=== PATIENT | male | born 1965 | race Caucasian/White ===

== ENCOUNTER 2017-03-30 06:35 | Observation (INO) | payer OTHER ==
[~2017-03-30] VITALS: Ht 177.8 cm; Wt 60.3 kg
--- NOTE | ~2017-03-30 | P ---
[facility] [place] [address] PROCEDURE REPORT Name: KEHINDE GARCIA Room #: 211-P [facility] M..#: [id number] Admission: 03/30/17 Attend Phys: Ned Corona MD Discharge: Date of : 67 Report #: [id number] THIS REPORT FOR: //name// CC: [facility] physician/PCP Ned Rice PROCEDURE: Bi-V pacemaker insertion PREOPERATIVE DIAGNOSES: 1. Permanent atrial fibrillation. 2. Nonischemic cardiomyopathy. HISTORY: The patient is a 52-year old with history of atrial fibrillation, who has failed multiple attempts at cardioversion as well as a nonischemic cardiomyopathy, who does not tolerate rate control medications due to increasing fatigue. He is here for a Bi-V pacemaker insertion with plans to perform an AV node ablation at a later date. ANESTHESIA: The patient underwent MAC anesthesia with no anesthesia related complications. DESCRIPTION OF PROCEDURE: The patient underwent informed consent. We discussed the details of the procedure including the risks, which include but not limited to bleeding, infection, vascular damage, cardiac perforation and pneumothorax. He understood these risks and was willing to proceed. As such, he is brought to the EP laboratory in a fasting and sedated state and prepped and draped in the sterile fashion. He received IV Ancef for antibiotic prophylaxis and underwent a venogram showing patency of the left axillary vein. Next, I injected 20 mL of lidocaine below the level of left clavicle. Incision was made. A pocket was created over the prepectoral fascia and access was obtained twice to left axillary vein using the extrathoracic approach. Sheaths were positioned using the modified Seldinger technique. Next, a lead was positioned in the right ventricular apex with adequate pacing and sensing thresholds. Next, a 9-Cambodian short sheath was placed into the left axillary vein and then, a coronary sinus guide sheath was placed into the right atrium. Using a Wholey wire, I obtained access to the coronary sinus with ease. A coronary sinus venogram was performed, which showed that there was a middle cardiac vein and posterolateral branch and an anterolateral branch. I decided to obtain access to the mid posterolateral branch. Of note, this access to this vein was somewhat challenging. Use a couple different guidewires to try and obtain access but once the guidewire was in place, I could not advance the lead. Eventually, I was able to advance the lead directly into the vessel and then placed a Glidewire deep into the branch. In fact, it appeared that the wire was entering the middle cardiac vein. I was able to advance the wire deep into the vessel and there was adequate pacing and sensing thresholds throughout. On the [facility] [address] [place] [address] PROCEDURE REPORT Name: RADHAKEHINDE Bourgeois Room #: 211-P [facility] Eugene M.R.#: [id number] Admission: 03/30/17 Attend Phys: Ned Corona MD Discharge: Date of : 67 Report #: [id number] distal poles, there was evidence of phrenic nerve capture but this was not noted on the mid poles. As such, the sheath was split. The lead was sutured to the prepectoral fascia using Ethibond suture and then, the device was connected. The atrial was plugged. The pocket was irrigated with vancomycin and then, the pocket was closed in 3 layers and surgical glue was placed to the outer skin layer. The patient awoke neurologically and hemodynamically intact with no complications and no significant bleeding. The implanted pacemaker was a [employer] model #IT9632, serial #[id number]. The RV lead was a [employer] model #5088TC, 58 cm, serial #[id number]. The LV lead was a [employer] model #1458Q. This is a 92 cm lead due to his obesity and large heart. The RV lead demonstrated a R-wave greater than 12 volts, pacing impedance of 800 ohms and pacing threshold of 0.75 volts at 0.4 milliseconds. The LV lead demonstrated a pacing impedance of 890 ohms and pacing threshold of 1 volt at 0.4 milliseconds. Reprogrammed the device to the vector 6 pacing configuration, which is pacing from M3 to M2 as this allowed for the best pacing threshold as well as a basal pacing configuration. The device was programmed to the VVI 50 mode. CONCLUSIONS: 1. Successful biventricular pacemaker insertion. 2. Satisfactory right ventricular and left ventricular pacing and sensing thresholds. By: [id number] Ned Corona MD /nt
--- NOTE | ~2017-03-30 | D ---
[facility] [place] [address] DISCHARGE SUMMARY Name: KEHINDE GARCIA Room #: [facility]..#: [id number] Admission: 03/30/17 Attend Phys: Ned Corona MD Discharge: Date of : 67 Report #: [id number] THIS REPORT FOR: //name// CC: MELIS[facility] physician/PCP Ned Rice DATE OF SERVICE: 03/31/2017 DISCHARGE DIAGNOSES: 1. Nonischemic cardiomyopathy. 2. Permanent atrial fibrillation. 3. Morbid obesity. 4. Tobacco abuse. 5. Chronic obstructive pulmonary disease. PROCEDURES PERFORMED: Bi-V pacemaker implantation. HISTORY OF PRESENT ILLNESS: The patient is a 52-year-old male with history of permanent atrial fibrillation and nonischemic cardiomyopathy who is scheduled for Bi-V pacemaker implantation with an AV node ablation at a later date. The patient underwent successful implantation of Bi-V pacemaker without any complications. HOSPITAL COURSE: The patient was monitored overnight. He received IV antibiotics. On telemetry, he remained in AFib with controlled rates. The following day, chest x-ray showed stable lead position with no pneumothorax. A device interrogation showed normal device function. The patient denied any problems with chest pain or shortness of breath. PHYSICAL EXAMINATION: VITAL SIGNS: Stable. HEART: Irregularly irregular with no murmurs, rubs, gallops. LUNGS: Clear to auscultation. ABDOMEN: Soft, nontender. EXTREMITIES: There is no clubbing, cyanosis, edema. DISCHARGE DISPOSITION: As such, he was deemed stable for discharge home. DISCHARGE INSTRUCTIONS: Reviewed. [facility] [address] [place] [address] DISCHARGE SUMMARY Name: KEHINDE GARCIA Room #: 211-P [facility] Eugene Michel#: [id number] Admission: 03/30/17 Attend Phys: Ned Corona MD Discharge: Date of : 67 Report #: [id number] FOLLOWUP: He has a followup in 7-10 days for a site check. He is instructed not to resume his anticoagulation until seen in clinic. By: [id number] Ned Corona MD /nt
[~2017-03-30 06:35] MED LIST: ALBUTEROL SULFAT4 MG PO; ALBUTEROL SULFATE PO; ALDACTONE25 MG PO; ASPIR 8181 MG PO; CARDIZEM CD240 MG PO; CARVEDILOL12.5 MG PO; COREG6.25 MG PO; COZAAR 25 MG TA25 M2 PO; DIGOXIN250 MCG; DIGOXIN250 MCG PO; GLYBURIDE 2.52.5 MG PO; KLOR-CON 1010 MEQ PO; LASIX 20 MG TAB20 MG PO; LASIX 40 MG TAB40 M2 PO; LIPITOR10 MG PO; LISINOPRIL5 MG PO; PACERONE 200 M200 M1 PO; PREDNISONE 10 M10 MG PO; TOPROL XL100 MG; VENTOLIN HFA 1818 GM INH; VENTOLIN HFA INH8 GM INH; XARELTO20 MG PO
[2017-03-30 07:15] LABS: ABSOLUTE NEUTROPHILS 7.3 thou/uL (1.4-8.2); EOSINOPHILS 7.5 % (0.0-3.0); HEMATOCRIT 49.6 % (42.0-52.0); HEMOGLOBIN 16.8 gm/dL (14.0-18.0); LYMPHOCYTES 19.5 % (24.0-44.0); MCH 33.8 pg (26.0-34.0); MCHC 33.9 g/dL (28.0-37.0); MCV 99.8 fL (80.0-100.0); MONOCYTES 10.1 % (1.0-8.0); PLATELET COUNT 305 thou/uL (150-400); POLYS 61.9 % (36.0-66.0); RBC 4.97 mil/uL (4.50-6.00); RDW 14.7 % (10.5-14.5); WBC 11.9 thou/uL (4.0-11.0)
[2017-03-30 07:19] LABS: MANUAL DIFF NO
[2017-03-30 07:22] LABS: CALCIUM 9.6 mg/dL (8.5-10.1); CREATININE 1.2 mg/dL (0.7-1.3); POTASSIUM 4.2 mmol/L (3.5-5.1)
[2017-03-30 07:28] LABS: ALBUMIN 3.8 g/dL (3.4-5.0); TOTAL BILIRUBIN 0.4 mg/dL (<0.1-1.0); TOTAL PROTEIN 7.9 g/dL (6.4-8.2)
[2017-03-30 07:32] LABS: APTT 25.9 Seconds (24.5-32.8); INR 1.1; PROTIME 10.8 Seconds (9.3-11.4)
[2017-03-30 07:58] VITALS: BP 104/73
[2017-03-30 12:10] VITALS: BP 109/80
[2017-03-30 15:05] VITALS: BP 110/66
[2017-03-30 19:27] VITALS: BP 114/53
[2017-03-30 23:18] VITALS: BP 135/71
[2017-03-31 03:28] VITALS: BP 122/86
[2017-03-31 07:54] VITALS: BP 158/92
[2017-03-31 08:55] VITALS: BP 158/92
[2017-03-31 10:40] VITALS: BP 124/89
== END 2017-03-31 13:00 | disposition home or self-care (01) ==
LOC: CATH → 2N 12:01
PROVIDERS: Internal Medicine Cardiovascular Disease
DX: I48.2 Chronic atrial fibrillation (principal); I42.9 Cardiomyopathy, unspecified; I25.10 Atherosclerotic heart disease of native coronary artery without angina pectoris; F17.210 Nicotine dependence, cigarettes, uncomplicated; K21.9 Gastro-esophageal reflux disease without esophagitis; I11.0 Hypertensive heart disease with heart failure; I50.40 Unspecified combined systolic (congestive) and diastolic (congestive) heart failure; E78.5 Hyperlipidemia, unspecified; G62.9 Polyneuropathy, unspecified; Z98.890 Other specified postprocedural states; Z79.82 Long term (current) use of aspirin; Z79.899 Other long term (current) drug therapy
CPT/HCPCS: 62110; 62900; 70005

== ENCOUNTER 2017-07-15 06:59 | Observation (INO) | payer OTHER ==
[~2017-07-15] VITALS: Ht 177.8 cm; Wt 131.5 kg
[2017-07-15] VITALS (12 sets, daily range): BP systolic 110–127; BP diastolic 73–93
--- NOTE | ~2017-07-15 | P ---
[facility] [place] [address] PROCEDURE REPORT Name: KEHINDE GARCIA Room #: 210-P [facility] Eugene MPeggy#: [id number] Admission: 07/15/17 Attend Phys: Ned Corona MD Discharge: 07/16/17 Date of : 67 Report #: [id number] THIS REPORT FOR: //name// CC: [facility] physician/PCP Ned Rice DATE OF SERVICE: 07/15/2017 PROCEDURE PERFORMED: AV node ablation. PREOPERATIVE DIAGNOSIS: Permanent atrial fibrillation. HISTORY OF PRESENT ILLNESS: The patient is a 52-year-old with history of permanent AFib, who is intolerant of AV lina blocking agents. He is status post Bi-V pacemaker implantation. He has healed nicely from this procedure. He is here today for AV node ablation. ANESTHESIA: The patient underwent MAC anesthesia with no anesthesia related complications. PROCEDURE: The patient underwent informed consent where we discussed the details of the procedure including the risks, which include, but not limited to bleeding, vascular damage, stroke, and [place]. He understood these risks and was willing to proceed. As such, the patient was brought to the EP laboratory in a fasting and sedated state and prepped and draped in a sterile fashion. His pacemaker was reprogrammed. Next, I obtained access of the right femoral vein times 1 placing an 8-Syriac short sheath and then exchanging this for a SR0 sheath. I placed an 8-mm ablation catheter into the right atrium. I spent over an hour trying to ablate the AV node. I could never find a His bundle. I then obtained a second access to the right femoral vein and placed a His catheter into the atrium and right ventricle to see if I could find a His bundle, but with his quadripolar catheter, I still could not find any His potentials. I continued to perform an empiric anatomical ablation and started low where the CS os was and continued ablating higher, but never developed heart block. As such, I decided to perform a retroaortic ablation from the left ventricle. I obtained access to the right femoral artery times 1 and placed an 8-Syriac short sheath. I then used a [employer] irrigated tip ablation catheter for ablation. The patient was systemically heparinized and I took the ablation catheter retrograde across the aortic valve into the left ventricle. I easily found His potential at this location. An ablation at the His resulted in heart block in approximately 7 seconds. We monitored for a period of 30 minutes and there was no return of conduction. The pacemaker was reinterrogated and found to be functioning normally and the device was programmed to the VVIR 90 beats per minute. The patient received systemic protamine and once the ACT was within acceptable range, all catheters and sheaths were pulled and hemostasis was [facility] [address] [place] [address] PROCEDURE REPORT Name: KEHINDE GARCIA Room #: 210-P [facility] MSondraRSondra#: [id number] Admission: 07/15/17 Attend Phys: Ned Corona MD Discharge: 07/16/17 Date of : 67 Report #: [id number] obtained. The patient awoke neurologically and hemodynamically intact with no complications. No significant bleeding. Given the prolonged procedure and retrograde access, I decided to keep the patient for monitoring overnight. CONCLUSIONS: Successful AV node ablation, requiring retroaortic approach and ablation from within the left ventricle. <ELECTRONICALLY SIGNED> By: Ned Corona MD 07/31/17 1617 1101 1329 Ned Corona MD /nt
--- NOTE | ~2017-07-15 | D ---
[facility] [place] [address] DISCHARGE SUMMARY Name: KEHINDE GARCIA Room #: 210-P [facility] Eugene M.RSondra#: [id number] Admission: 07/15/17 Attend Phys: Ned Corona MD Discharge: 07/16/17 Date of : 67 Report #: [id number] THIS REPORT FOR: //name// CC: MELIS[facility] physician/PCP Ned Young Krystal DISCHARGE DIAGNOSES: 1. Atrial fibrillation. 2. Nonischemic cardiomyopathy. PROCEDURES PERFORMED: AV node ablation. HISTORY OF PRESENT ILLNESS: The patient is a 52-year-old with a history of permanent atrial fibrillation, nonischemic cardiomyopathy with difficult to control rates, who is status post Bi-V pacemaker implantation. He is here for AV node ablation. Attempts at ablating the AV node were challenging from the right side. I could not really find a His signal and he had a very large right atrium and right ventricle. As such, I decided to go retrograde and I found the His bundle in the left ventricle at the septum. Ablation at this site resulted in complete heart block in less than 10 seconds. HOSPITAL COURSE: The patient was monitored overnight, did well, had no complications on telemetry, remained in AFib with a paced rhythm. Device was interrogated by the [employer] livestock and showed that there was persistence of heart block. On the day of discharge, the patient was doing well. He denies any chest pain, shortness of breath, PND, orthopnea. He had no fevers or chills. PHYSICAL EXAMINATION: HEART: Regular rate and rhythm with no murmurs. He had no elevated jugular venous pressures. LUNGS: Clear to auscultation bilaterally. ABDOMEN: Soft, nontender. EXTREMITIES: There is no edema. His right groin had healed nicely with no hematoma. As such, he was deemed stable for discharge home. He will continue with beta pardip, losartan, Xarelto. We will discontinue his amiodarone and digoxin. He will follow up with me in 3 months. <ELECTRONICALLY SIGNED> By: Ned Corona MD 07/27/17 1311 [id number] Ned Corona MD /nt
[~2017-07-15 06:59] MED LIST changes: +HYDROCODON-ACE1 EAC7 PO; -TOPROL XL100 MG; +TOPROL XL100 MG PO
[2017-07-15 07:35] LABS: HEMATOCRIT 48.7 % (42.0-52.0); HEMOGLOBIN 16.6 gm/dL (14.0-18.0); MCHC 34.2 g/dL (28.0-37.0); MCV 96.6 fL (80.0-100.0); PLATELET COUNT 227 thou/uL (150-400); RBC 5.04 mil/uL (4.50-6.00); RDW 15.1 % (10.5-14.5); WBC 8.6 thou/uL (4.0-11.0)
[2017-07-15 07:42] LABS: CREATININE 1.2 mg/dL (0.7-1.3)
[2017-07-15 07:46] LABS: APTT 25.8 Seconds (24.5-32.8); PROTIME 10.7 Seconds (9.3-11.4)
[2017-07-15 08:48] LABS: ATYPICAL LYMPHS 1 %; METAMYELOCYTES 1 %
[2017-07-15 08:49] LABS: ANISOCYTOSIS 1+
[2017-07-16] VITALS (8 sets, daily range): BP systolic 98–123; BP diastolic 62–77
[2017-10-22] MEDS ORDERED: COZAAR 50 MG TA50 M2 PO (12:22)
[2017-10-22] MEDS ORDERED: SPIRONOLACTONE25 M1 PO (12:23)
[2017-10-22] MEDS ORDERED: METOLAZONE 5 MG5 MG PO (12:24)
[2017-10-22] MEDS ORDERED: XARELTO20 MG PO (12:26)
[2017-10-22] MEDS ORDERED: VOSPIRE INH (14:33)
[2017-12-08] MEDS ORDERED: VENTOLIN HFA 1818 GM PO (11:49)
[2018-02-04] MEDS ORDERED: NORCO 10-325 T1 EACH PO (04:31)
[2018-02-09] MEDS ORDERED: NORCO 10-325 T1 EACH PO (10:47)
[2018-02-09] MEDS ORDERED: GLUCOPHAGE500 MG PO (11:07)
== END 2017-07-16 13:20 | disposition home or self-care (01) ==
LOC: CATH → 2N 11:23 → ENTRNSPT 07-16 12:49 → EDTRNSPTSTS 07-16 12:51 → 2N 07-16 13:20
PROVIDERS: Internal Medicine Cardiovascular Disease
DX: I48.2 Chronic atrial fibrillation (principal); I11.0 Hypertensive heart disease with heart failure; I50.40 Unspecified combined systolic (congestive) and diastolic (congestive) heart failure; E78.5 Hyperlipidemia, unspecified; E66.9 Obesity, unspecified; F17.210 Nicotine dependence, cigarettes, uncomplicated; Z98.890 Other specified postprocedural states
CPT/HCPCS: 62110; 62900; 70005

== ENCOUNTER → 2017-10-20 | Outpatient (CLI) | payer OTHER ==
[~2017-10-20] MED LIST changes: +COZAAR 50 MG TA50 M2 PO; +METOLAZONE 5 MG5 MG PO; +VOSPIRE PO
== END ==
LOC: RAD 06:12
DX: K21.9 Gastro-esophageal reflux disease without esophagitis (principal)

== ENCOUNTER 2017-12-10 05:36 | Inpatient (IN) | payer OTHER ==
[2017-12-10] VITALS (13 sets, daily range): BP systolic 130–163; BP diastolic 62–89
[~2017-12-10] VITALS: Ht 177.8 cm; Wt 136.1 kg
--- NOTE | ~2017-12-10 | O ---
[facility] [place] [address] OPERATIVE REPORT Name: KEHINDE GARCIA Room #: 458-P [facility] IN M.R.#: [id number] Admission: 12/10/17 Attend Phys: Jethro Ramos MD, Discharge: Date of : 67 Report #: [id number] THIS REPORT FOR: //name// CC: MEL[facility] physician/PCP Jethro Ramos DATE OF SERVICE: 12/10/2017 PREOPERATIVE DIAGNOSES: 1. Incarcerated umbilical hernia. 2. Morbid obesity. 3. Gastroesophageal reflux disease. 4. Coronary artery disease. 5. Hypertension. 6. Obstructive sleep apnea, on continuous positive airway pressure. 7. Chronic obstructive pulmonary disease. POSTOPERATIVE DIAGNOSES: 1. Incarcerated umbilical hernia. 2. Morbid obesity. 3. Gastroesophageal reflux disease. 4. Coronary artery disease. 5. Hypertension. 6. Obstructive sleep apnea, on continuous positive airway pressure. 7. Chronic obstructive pulmonary disease. PROCEDURE: Robot-assisted laparoscopic repair of an incarcerated umbilical hernia with mesh. SURGEON: Jethro Ramos MD SINGLE POINTED OPERATOR: EFRAÍN Paulino. ANESTHESIA: General endotracheal anesthesia. ESTIMATED BLOOD LOSS: Minimal (less than 5 mL). COMPLICATIONS: None appreciated. SPECIMENS: None. INDICATIONS: The patient is a 52-year-old morbidly obese male with the above-mentioned medical issues who has obvious evidence of an incarcerated umbilical hernia suspected to contain omentum. The patient has no evidence of a bowel obstruction whatsoever. The patient's defect was approximately 3 x 3 cm in dimension and as such, indication was for the above-mentioned procedures [facility] [address] [place] [address] OPERATIVE REPORT Name: KEHINDE GARCIA Room #: 458-P [facility] [place] .R.#: [id number] Admission: 12/10/17 Attend Phys: Jethro Ramos MD, Discharge: Date of : 67 Report #: [id number] today. DESCRIPTION OF PROCEDURE: After explaining the risks, benefits and alternatives of the procedure with the patient in detail in the preoperative holding area and obtaining written consent, the patient was brought to the operating room and placed supine on the operating room table. After conducting a thorough timeout procedure verifying correct patient and procedure, the patient was given general endotracheal anesthesia. Once adequate anesthesia was obtained, his SCDs were hooked up to pneumatic compression device. He was given a preoperative dose of antibiotics in line with the SCIP protocol. The patient's abdomen was prepped and draped in the standard surgical sterile fashion. A 5 mL of 0.5% Marcaine with epinephrine was used to anesthetize the skin in the left upper quadrant, midclavicular line and in a subcostal location. A #15 bladed scalpel was used to create a small skin mejia at this location. A 5 mm Visiport was placed over 0 degree 5 mm laparoscope and was introduced through this incision site. Once intra-abdominal placement was verified visually, the obturator for the trocar and laparoscope were both removed and the abdomen was insufflated to 15 mmHg using carbon dioxide gas. The laparoscope was changed to a 5-mm 30-degree laparoscope, which was reintroduced through this trocar. The entire abdomen was evaluated to ensure no injury upon entry. I then placed 2 additional trocars in the left flank. A 12 mm port was placed lateral to the umbilicus at the anterior axillary line and then an 8 mm robotic port was placed in the left lower quadrant. Both additional trocars were placed under direct vision after anesthetizing the skin at each location with 5 mL of 0.5% Marcaine with epinephrine and I had created appropriately sized skin nicks using #15 bladed scalpel. The laparoscope was removed, changed to a left lower quadrant trocar and the initially placed trocar was upsized to an 8 mm robotic trocar under direct vision. The laparoscope was removed. The da Priscilla robot was docked in standard fashion and a 30-degree up viewing laparoscope was entered into the abdomen through the 12 mm port. A ProGrasp device and scissors with electrocautery were then entered into the abdomen under direct vision with robotic assistance. I now used the scissors with electrocautery to score the peritoneum lateral to the rectus abdominis muscle. This allowed me to enter into the preperitoneal space and I proceeded to dissect in this preperitoneal space from the patient's left flank all the way across the midline to the right flank. The hernia sac was reduced in full. No holes were made in the peritoneum or hernia sac, which remained contiguous. As I dissected into the right lateral abdominal wall, we had complete hemostasis throughout. I carried the dissection at a span of approximately 15 cm in craniocaudal dimension at this juncture. Evaluation of the defect showed a 3 x 3 cm defect. I now utilized 0 Stratafix absorbable suture, which was entered in the abdomen under direct vision and proceeded to close the hernia defect in standard running fashion. I then selected a piece of ProGrip mesh measuring 10 x 15 cm in dimension. The corners were rounded off and the mesh was rolled up and placed in the abdomen, more it was maneuvered into the preperitoneal space. This was then maneuvered into position where it was unrolled giving us excellent overlap [address] [address] OPERATIVE REPORT Name: KEHINDE GARCIA Room #: 458-P [facility] .R.#: [id number] Admission: 12/10/17 Attend Phys: Jethro Ramos MD, Discharge: Date of : 67 Report #: [id number] of 5 cm in all directions outside of the hernia defect, now that the defect itself had been closed down the midline. The mesh was anchored into position at 5 points at the 12, 3, 6, and 9 o'clock positions as well as one in the middle of the mesh to hold the entire mesh in close approximation with the posterior aspect of the anterior abdominal wall. Photodocumentation of the repair was taken and provided to the patient and the permanent medical record. I then proceeded to reperitonealize the abdominal wall using 2-0 Stratafix in standard running fashion. This kept the mesh completely excluded from the intra-abdominal domain. There were no holes in the peritoneum whatsoever. All needles were removed under direct vision and passed off the field. One final evaluation of the intra-abdominal domain showed no further evidence of pathology. The robot was undocked and a 5 mm 30-degree laparoscope was placed back in the left upper quadrant trocar. The 12 mm fascial incision was closed under direct vision using 0 PDS suture on the Asif-Marina suture passer device. This was tied down under direct vision. The abdomen was fully desufflated. All remaining trocars were removed under direct vision. A 4-0 Monocryl was used in a standard subcuticular fashion for all skin incisions and Dermabond glue was applied to all skin wounds. A tonsil ball was placed in the umbilicus covered with a Tegaderm to hopefully prevent seroma formation. An abdominal binder was then applied as well. At the end of the procedure, all instrument, needle and sponge counts were correct. The patient tolerated the procedure without incident, was awakened in the operating room and transitioned to the recovery room in stable condition with no apparent complications. <ELECTRONICALLY SIGNED> By: Jethro Ramos MD, FACS 12/11/17 0738 1616 1714 Jethro Ramos MD, FACS /nt
[~2017-12-10 05:36] MED LIST changes: +VENTOLIN HFA 1818 GM PO; +VOSPIRE INH; -VOSPIRE PO
[2017-12-10 07:17] LABS: CALCIUM 9.3 mg/dL (8.5-10.1); CREATININE 1.2 mg/dL (0.7-1.3); POTASSIUM 4.6 mmol/L (3.5-5.1)
[2017-12-10] MEDS ORDERED: HYDROCODONE-AP1 EAC6 PO (10:33)
[2017-12-10] MEDS ORDERED: NEURONTIN 300300 M1 PO (10:33)
[2017-12-10] MEDS ORDERED: SENOKOT-S TABL1 EACH PO (10:33)
[2017-12-11 03:50] VITALS: BP 143/63
[2017-12-11 06:34] LABS: MCH 32.6 pg (26.0-34.0); MCHC 33.3 g/dL (28.0-37.0); MCV 97.9 fL (80.0-100.0); RBC 4.91 mil/uL (4.50-6.00); RDW 15.2 % (10.5-14.5); WBC 20.5 thou/uL (4.0-11.0)
[2017-12-11 06:46] LABS: CALCIUM 8.8 mg/dL (8.5-10.1); CREATININE 1.3 mg/dL (0.7-1.3)
[2017-12-11 07:58] VITALS: BP 140/76
[2017-12-11 13:03] VITALS: BP 140/76
== END 2017-12-11 14:00 | disposition home or self-care (01) | DRG 354 ==
LOC: TBA 05:36 → OR 05:36 → 4W 12:24 → OR 15:08 → ENTRNSPT 12-11 13:34 → EDTRNSPTSTS 12-11 13:36 → 4W 12-11 14:00
PROVIDERS: Surgery
PROC: 8E0W4CZ Robotic Assisted Procedure of Trunk Region, Percutaneous Endoscopic Approach (ICD-10-PCS; principal; 2017-12-10)
PROC: 0WUF4JZ Supplement Abdominal Wall with Synthetic Substitute, Percutaneous Endoscopic Approach (ICD-10-PCS; principal; 2017-12-10)
DX: K42.0 Umbilical hernia with obstruction, without gangrene (principal); I48.91 Unspecified atrial fibrillation; I10 Essential (primary) hypertension; E66.01 Morbid (severe) obesity due to excess calories; K21.9 Gastro-esophageal reflux disease without esophagitis; G47.33 Obstructive sleep apnea (adult) (pediatric); J44.9 Chronic obstructive pulmonary disease, unspecified; I25.10 Atherosclerotic heart disease of native coronary artery without angina pectoris; Z68.41 Body mass index [BMI] 40.0-44.9, adult; Z88.8 Allergy status to other drugs, medicaments and biological substances; Z91.048 Other nonmedicinal substance allergy status
CPT/HCPCS: 10045; 50010; 50101; 50249; 50386; 50555; 50558; 52265; 54022; 54118; 54169; 56525; 56719; 57092; 57130; 62110; 62900; 70005